=== PATIENT | male | born 1995 | race Caucasian/White ===

== ENCOUNTER 2022-06-26 23:42 | Emergency (ER) | payer OTHER ==
[~2022-06-26] VITALS: Ht 170.2 cm; Wt 144.5 kg
[2022-06-27 00:27] VITALS: BP 129/80
== END 2022-06-27 02:00 | disposition left against medical advice (07) ==
LOC: ER 06-27 00:01
DX: Z53.21 Procedure and treatment not carried out due to patient leaving prior to being seen by health care provider (principal)